=== PATIENT | female | born 1960 | race Caucasian/White ===

== ENCOUNTER 2024-08-13 05:44 | Day surgery (SDC) | payer OTHER ==
[2024-08-12 09:54] VITALS: BMI 24.7
[2024-08-13 09:01] VITALS: RESP 18; TEMP 98
[2024-08-13 09:31] VITALS: PULSE 64
[2024-08-13 09:32] VITALS: BP 154/68
== END 2024-08-13 09:40 | disposition home or self-care (01) ==
LOC: JASU-ENDO 05:44
PROVIDERS: ATTEND Internal Medicine Gastroenterology
PROC: 0DBL8ZX Excision of Transverse Colon, Via Natural or Artificial Opening Endoscopic, Diagnostic (ICD-10-PCS; 2024-08-13)
PROC: 0DBF8ZX Excision of Right Large Intestine, Via Natural or Artificial Opening Endoscopic, Diagnostic (ICD-10-PCS; 2024-08-13)
PROC: 0DBM8ZX Excision of Descending Colon, Via Natural or Artificial Opening Endoscopic, Diagnostic (ICD-10-PCS; principal; 2024-08-13 08:00)
DX: Z12.11 Encounter for screening for malignant neoplasm of colon (principal); Z86.0100 Personal history of colon polyps, unspecified; D12.4 Benign neoplasm of descending colon; D12.3 Benign neoplasm of transverse colon; D12.2 Benign neoplasm of ascending colon; K64.8 Other hemorrhoids
CPT/HCPCS: 88305-TC